=== PATIENT | male | born 1945 | race African-American/Black ===

== ENCOUNTER 2018-04-03 06:46 | Inpatient (IN) ==
[2018-04-07 08:35] VITALS: BP 137/62
== END 2018-04-07 15:55 | disposition home or self-care (01) | DRG 177 ==
LOC: N.ED 06:46 → SUATTDRO 10:49 → N.EDINP 10:49 → N.2W 11:36 → N.4E 13:33
PROVIDERS: ADMIT Hospitalist; ATTEND Internal Medicine

== ENCOUNTER 2021-03-28 07:17 | Inpatient (IN) ==
[2021-03-28 10:43] LABS: Basophils # 0.1 10*3/uL (0.0-0.2); Basophils % 0.9 % (0.0-0.8); Eosinophils # 0.1 10*3/uL (0.0-0.87); Eosinophils % 1.3 % (0.00-10.9); Hemoglobin 12.1 GM/DL (14.0-18.0); Immature Granulocytes % 0.4 %; Immature Granulocytes Absolute 0.02 #; Lymphocytes # 1.4 10*3/uL (1.4-4.0); Lymphocytes % 26.5 % (21.2-54.2); Mean Corpuscular HGB Conc 31.8 GM/DL (32-36); Mean Corpuscular Volume 81.4 FL (87-102); Mean Platelet Volume 10.7 FL (9.6-12.0); Monocytes % 6.6 % (1.7-12.7); Neutrophils % 64.3 % (38.7-73.9); Platelet Count 210 T/CUMM (130-400); Red Blood Count 4.67 MC/CUMM (3.8-5.5); Red Cell Distribution Width 15.1 % (9.3-17.3); White Blood Count 5.3 T/CUMM (4-12)
[2021-03-28 11:01] LABS: Albumin 4.4 G/DL (3.4-5.0); Bilirubin,Total 0.4 MG/DL (0.20-1.00); Calcium 9.8 MG/DL (8.5-10.1); Osmolality,Calculated 274.7 MOS/KG (273-304); Total Protein 8.2 G/DL (6.4-8.2)
[2021-03-28 12:44] LABS: Bacteria,Urine Occasional /HPF (Few); Bilirubin,Urine Negative (Negative); Blood, Urine Negative (Negative); Glucose,Urine (UA) Negative (Negative); Ketones,Urine 5 mg/dL (Negative); Mucus,Urine Occasional /LPF (Occasional); Nitrite,Urine Negative (Negative); Protein,Urine Negative; RBC,Urine 2 /HPF (0-4); Squamous Epithelial Cell,Urine Occasional /HPF (0-10); Urine Appearance CLEAR (Clear); Urine Color Yellow (Yellow); Urine Specific Gravity 1.015 (1.001-1.035); Urine Urobilinogen < 2.0 EU/DL (0.2-1.0)
[2021-03-28] MEDS ORDERED: ONDANSETRON 4 MG/2 ML VIAL IV PRN (15:46)
[2021-03-28] MEDS ORDERED: DEXTROSE 50% 25 GM/50 ML VIAL IV PRN (15:46)
[2021-03-28] MEDS ORDERED: GLUCAGON 1 MG VIAL IM PRN (15:46)
[2021-03-28] MEDS ORDERED: NICOTINE 21 MG/24 HR PATCH TRANSDERM PRN (15:46)
[2021-03-28] MEDS ORDERED: BISACODYL 10 MG SUPP RECTAL STA (15:53)
[2021-03-28] MEDS ORDERED: SODIUM CHLORIDE 0.9% 1,000 ML IV STA (16:47)
[2021-03-28] MEDS: SODIUM CHLORIDE 0.9% 1,000 ML IV STA ×2 (16:51→17:12)
[2021-03-28] MEDS: cefTRIAXone 1,000 MG in SODIUM CHLORIDE 0.9% 100 ML IV SCH (17:09)
[2021-03-28] MEDS: methylPREDNISolone SOD SUC 40 MG/1 ML VIAL IV SCH (17:45)
[2021-03-28] MEDS: BISACODYL 5 MG TABLET PO SCH (17:46)
[2021-03-28] MEDS: ALBUTEROL/IPRATROPIUM 3 ML NEB RESP TX SCH ×2 (19:13→23:55)
[2021-03-28] MEDS: AZITHROMYCIN INJ 500 MG in SODIUM CHLORIDE 0.9% 250 ML IV SCH (20:49)
[2021-03-28] MEDS: POLYETHYLENE GLYCOL POWDER 17 GM PACK PO SCH (20:49)
[2021-03-29] MEDS: methylPREDNISolone SOD SUC 40 MG/1 ML VIAL IV SCH ×3 (00:27→16:55)
[2021-03-29 06:45] LABS: Albumin 3.6 G/DL (3.4-5.0); Bilirubin,Total 0.4 MG/DL (0.20-1.00); Calcium 8.9 MG/DL (8.5-10.1); Risk Ratio 2.24; Thyroid Stimulating Hormone 1.15 uIU/ml (0.358-3.74); VLDL Cholesterol 7.8 MG/DL
[2021-03-29] MEDS: ALBUTEROL/IPRATROPIUM 3 ML NEB RESP TX SCH ×3 (06:57→19:39)
[2021-03-29] MEDS: BISACODYL 5 MG TABLET PO SCH (09:16)
[2021-03-29] MEDS: POLYETHYLENE GLYCOL POWDER 17 GM PACK PO SCH ×2 (09:16→20:20)
[2021-03-29 10:34] LABS: % Iron Saturation 7.8 % (18-50)
[2021-03-29 11:25] LABS: Folate 11.48 NG/ML (5.38-24.0)
[2021-03-29] MEDS: PANTOPRAZOLE 40 MG TABLET PO SCH (12:52)
[2021-03-29] MEDS: ENOXAPARIN 40 MG/0.4 ML SYRINGE SUBCUT SCH (12:52)
[2021-03-29] MEDS: cefTRIAXone 1,000 MG in SODIUM CHLORIDE 0.9% 100 ML IV SCH (16:54)
[2021-03-29] MEDS: AZITHROMYCIN INJ 500 MG in SODIUM CHLORIDE 0.9% 250 ML IV SCH (20:20)
[2021-03-30] MEDS: ALBUTEROL/IPRATROPIUM 3 ML NEB RESP TX SCH ×4 (00:12→19:04)
[2021-03-30] MEDS: methylPREDNISolone SOD SUC 40 MG/1 ML VIAL IV SCH ×3 (00:28→17:21)
[2021-03-30 07:11] LABS: Albumin 3.6 G/DL (3.4-5.0); Bilirubin,Total 1.3 MG/DL (0.20-1.00); Calcium 9.4 MG/DL (8.5-10.1); Osmolality,Calculated 279.5 MOS/KG (273-304); Potassium 3.7 MMOL/L (3.5-5.1); Total Protein 7.3 G/DL (6.4-8.2)
[2021-03-30] MEDS: PANTOPRAZOLE 40 MG TABLET PO SCH (09:40)
[2021-03-30] MEDS: POLYETHYLENE GLYCOL POWDER 17 GM PACK PO SCH ×2 (09:41→20:53)
[2021-03-30] MEDS: BISACODYL 5 MG TABLET PO SCH (09:41)
[2021-03-30] MEDS: ENOXAPARIN 40 MG/0.4 ML SYRINGE SUBCUT SCH (12:24)
[2021-03-30] MEDS: FERROUS SULFATE 325 MG TABLET PO SCH (17:21)
[2021-03-30] MEDS: cefTRIAXone 1,000 MG in SODIUM CHLORIDE 0.9% 100 ML IV SCH (17:22)
[2021-03-30] MEDS: AZITHROMYCIN INJ 500 MG in SODIUM CHLORIDE 0.9% 250 ML IV SCH (20:53)
[2021-03-31] MEDS: methylPREDNISolone SOD SUC 40 MG/1 ML VIAL IV SCH ×3 (00:12→17:29)
[2021-03-31] MEDS: ALBUTEROL/IPRATROPIUM 3 ML NEB RESP TX SCH ×5 (00:25→23:50)
[2021-03-31 06:38] LABS: Alanine Aminotransferase 16 U/L (16-61); Albumin 3.1 G/DL (3.4-5.0); Alkaline Phosphatase 55 U/L (45-117); Aspartate Amino Transferase 13 U/L (0-37); Bilirubin,Total < 0.39 MG/DL (0.20-1.00); Blood Urea Nitrogen 11 MG/DL (7-18); Carbon Dioxide 29 MMOL/L (21-32); Estimated Glom Filtration Rate 113 ML/MIN; Glucose 120 MG/DL (74-106); Osmolality,Calculated 282.1 MOS/KG (273-304); Potassium 3.7 MMOL/L (3.5-5.1); Sodium 142 MMOL/L (136-145); Total Protein 6.7 G/DL (6.4-8.2)
[2021-03-31] MEDS: BISACODYL 5 MG TABLET PO SCH (09:29)
[2021-03-31] MEDS: FERROUS SULFATE 325 MG TABLET PO SCH ×2 (09:29→17:29)
[2021-03-31] MEDS: PANTOPRAZOLE 40 MG TABLET PO SCH (09:29)
[2021-03-31] MEDS: POLYETHYLENE GLYCOL POWDER 17 GM PACK PO SCH ×2 (09:31→22:26)
[2021-03-31] MEDS: CLINDAMYCIN INJ 300 MG/50 ML PREMIX IV SCH ×2 (11:33→19:35)
[2021-03-31] MEDS: ENOXAPARIN 40 MG/0.4 ML SYRINGE SUBCUT SCH (11:36)
[2021-03-31] MEDS: cefTRIAXone 1,000 MG in SODIUM CHLORIDE 0.9% 100 ML IV SCH (17:29)
[2021-04-01] MEDS: CLINDAMYCIN INJ 300 MG/50 ML PREMIX IV SCH ×3 (04:30→20:10)
[2021-04-01] MEDS: methylPREDNISolone SOD SUC 40 MG/1 ML VIAL IV SCH ×3 (05:00→17:52)
[2021-04-01 05:29] LABS: Basophils % 0.1 % (0.0-0.8); Hematocrit 32.3 VOL% (42.0-52.0); Hemoglobin 10.3 GM/DL (14.0-18.0); Immature Granulocytes % 0.7 %; Immature Granulocytes Absolute 0.07 #; Lymphocytes # 1.2 10*3/uL (1.4-4.0); Lymphocytes % 11.2 % (21.2-54.2); Mean Corpuscular HGB Conc 31.9 GM/DL (32-36); Mean Corpuscular Volume 82.6 FL (87-102); Mean Platelet Volume 11.1 FL (9.6-12.0); Platelet Count 185 T/CUMM (130-400); Red Blood Count 3.91 MC/CUMM (3.8-5.5); Red Cell Distribution Width 15.2 % (9.3-17.3); White Blood Count 10.4 T/CUMM (4-12)
[2021-04-01 05:41] LABS: Calcium 9.3 MG/DL (8.5-10.1); Osmolality,Calculated 273.7 MOS/KG (273-304); Potassium 3.4 MMOL/L (3.5-5.1)
[2021-04-01] MEDS: ALBUTEROL/IPRATROPIUM 3 ML NEB RESP TX SCH ×3 (07:20→19:55)
[2021-04-01] MEDS: POLYETHYLENE GLYCOL POWDER 17 GM PACK PO SCH ×2 (09:59→22:00)
[2021-04-01] MEDS: FERROUS SULFATE 325 MG TABLET PO SCH ×2 (09:59→17:48)
[2021-04-01] MEDS: PANTOPRAZOLE 40 MG TABLET PO SCH (09:59)
[2021-04-01] MEDS: BISACODYL 5 MG TABLET PO SCH (09:59)
[2021-04-01] MEDS: ENOXAPARIN 40 MG/0.4 ML SYRINGE SUBCUT SCH (12:56)
[2021-04-01] MEDS: cefTRIAXone 1,000 MG in SODIUM CHLORIDE 0.9% 100 ML IV SCH (17:52)
[2021-04-02] MEDS: ALBUTEROL/IPRATROPIUM 3 ML NEB RESP TX SCH ×3 (01:00→14:59)
[2021-04-02] MEDS: methylPREDNISolone SOD SUC 40 MG/1 ML VIAL IV SCH ×2 (03:34→10:49)
[2021-04-02] MEDS: CLINDAMYCIN INJ 300 MG/50 ML PREMIX IV SCH ×2 (03:34→10:49)
[2021-04-02 05:52] LABS: Hematocrit 31.4 VOL% (42.0-52.0); Hemoglobin 10.3 GM/DL (14.0-18.0); Immature Granulocytes % 0.7 %; Immature Granulocytes Absolute 0.05 #; Lymphocytes % 14.1 % (21.2-54.2); Mean Corpuscular HGB Conc 32.8 GM/DL (32-36); Mean Corpuscular Volume 80.3 FL (87-102); Mean Platelet Volume 11.1 FL (9.6-12.0); Monocytes % 6.6 % (1.7-12.7); Neutrophils % 78.6 % (38.7-73.9); Platelet Count 200 T/CUMM (130-400); Red Blood Count 3.91 MC/CUMM (3.8-5.5); Red Cell Distribution Width 15.1 % (9.3-17.3); White Blood Count 6.9 T/CUMM (4-12)
[2021-04-02 06:22] LABS: Calcium 8.9 MG/DL (8.5-10.1); Osmolality,Calculated 278.4 MOS/KG (273-304); Potassium 3.6 MMOL/L (3.5-5.1)
[2021-04-02] MEDS: FERROUS SULFATE 325 MG TABLET PO SCH (10:49)
[2021-04-02] MEDS: PANTOPRAZOLE 40 MG TABLET PO SCH (10:49)
[2021-04-02] MEDS: BISACODYL 5 MG TABLET PO SCH (10:52)
[2021-04-02] MEDS: POLYETHYLENE GLYCOL POWDER 17 GM PACK PO SCH (10:53)
[2021-04-02] MEDS: ENOXAPARIN 40 MG/0.4 ML SYRINGE SUBCUT SCH (12:48)
[2021-04-02 16:14] VITALS: BP 155/76
== END 2021-04-02 15:45 | disposition home or self-care (01) | DRG 190 ==
LOC: N.ED 07:17 → N.5E 07:17
PROVIDERS: ADMIT Internal Medicine; ATTEND Internal Medicine